=== PATIENT | male | born 1955 | race Caucasian/White ===

== ENCOUNTER → 2024-05-11 11:46 | Outpatient (CLI) | payer OTHER, SELFPAY ==
--- NOTE | 2024-05-11 11:51 | DI.US.S_ITS ---
PROCEDURE: US EXTREMITY NONVASC LOWER LT INDICATIONS: pop in knee,swollen and unstable TECHNIQUE: Real-time scanning was performed of the left knee , with image documentation. COMPARISON: None. FINDINGS: Several fluid collection surround the left knee. These include: -1.9 x 1.9 x 0.6 centimeter complex collection superior to the patella. -4.4 x 0.3 x 1.8 centimeter superior to the patella. -7.8 x 0.9 x 3.6 centimeter superior to the patella. -5.2 x 1.5 x 4.6 centimeters in the medial calf adjacent to the gastrocnemius muscles. IMPRESSION: Multiple fluid collections surrounding the knee, probably representing hematomas. Dictated by: Michelet Lucio M.D. on 05/12/2024 at 10:31 Approved by: Michelet Lucio M.D. on 05/12/2024 at 10:33
== END ==
PROVIDERS: Referring Provider Physician Assistant Medical; Visit Provider Physician Assistant Medical
DX: S83.92XA Sprain of unspecified site of left knee, initial encounter (principal); W18.40XA Slipping, tripping and stumbling without falling, unspecified, initial encounter
CPT/HCPCS: 76882